=== PATIENT | male | born 1960 | race African-American/Black ===

== ENCOUNTER 2023-12-09 01:51 | Emergency (ER) | payer OTHER ==
[~2023-12-09] VITALS: Ht 175.3 cm; Wt 90.9 kg
[2023-12-09 01:58] VITALS: TEMP 97.8
[2023-12-09] MEDS ORDERED: LISI-657 PO (02:02)
[2023-12-09 02:59] VITALS: BP 139/96; PULSE 81; RESP 16; O2SAT 99
== END 2023-12-09 03:20 | disposition home or self-care (01) ==
LOC: EMS 01:51
DX: T16.1XXA Foreign body in right ear, initial encounter (principal); F12.90 Cannabis use, unspecified, uncomplicated; Z79.899 Other long term (current) drug therapy; W44.8XXA Other foreign body entering into or through a natural orifice, initial encounter; Y93.89 Activity, other specified; Y92.89 Other specified places as the place of occurrence of the external cause; Y99.8 Other external cause status
CPT/HCPCS: 69200; 99284; Z7502